=== PATIENT | female | born 1960 | race Caucasian/White ===

== ENCOUNTER 2017-11-30 16:55 | Inpatient (IN) | payer BC ==
[~2017-11-30] VITALS: Ht 157.5 cm; Wt 76.9 kg
[2017-11-30 18:58] LABS: PLATELET COUNT 237 x10^3mcL (130-400)
[2017-11-30 19:15] LABS: BILIRUBIN TOTAL 0.44 mg/dL (0.20-1.00); CALCIUM 8.8 mg/dL (8.5-10.1); CREATININE SERUM 3.3 mg/dL (0.6-1.0); TOTAL PROTEIN, SERUM 7.5 g/dL (6.4-8.2)
[2017-11-30 19:16] LABS: ALBUMIN 2.6 g/dL (3.4-5.0)
[2017-11-30 19:17] LABS: POTASSIUM SERUM 2.3 mmol/L (3.5-5.1)
[2017-11-30 20:00] LABS: BAND NEUTROPHIL 33 % (0-10); BASOPHIL 0 % (0-2); METAMYELOCTE 2 % (0-2); MONOCYTE 2 % (0-7); MYELOCYTE 3 % (0-2); PLATELET MORPHOLOGY PLT CLUMPS SEEN; SEGMENTED NEUTROPHILS 54 % (37-75); rbc morphology (normal/abnorm) ABNORMAL (NORMAL)
[2017-11-30 21:00] LABS: MAGNESIUM 1.6 mg/dL (1.8-2.4); PHOSPHOROUS 2.4 mg/dL (2.5-4.9)
[2017-11-30 21:07] LABS: FREE T4 1.51 ng/dL (0.76-1.46); FREE THYROXINE INDEX 2.5 ug/dL (1.4-4.5); T4(THYROXINE) 7.1 ug/dL (4.7-13.3)
[2017-11-30 21:08] LABS: T3 TOTAL 0.48 ng/mL
[2017-11-30 21:32] LABS: microscopic required? YES; urine erythrocyte TRACE (NEGATIVE)
[2017-11-30 21:42] LABS: CHOLESTEROL/HDL RATIO 6.9
[2017-11-30 21:42] LABS: AMPHETAMINE QUAL UR NONE DETECTED (See below)
[2017-11-30 22:04] VITALS: BP 121/71
[2017-12-01] VITALS (7 sets, daily range): BP systolic 108–162; BP diastolic 53–85
[2017-12-01 01:07] LABS: AMYLASE 31 U/L (25-115); LACTIC DEHYDROGENASE (LDH) 221 U/L (100-190)
[2017-12-01 04:57] LABS: CALCIUM 7.9 mg/dL (8.5-10.1); CARBON DIOXIDE 15.6 mmol/L (21-32); CREATININE SERUM 2.3 mg/dL (0.6-1.0)
[2017-12-01 05:11] LABS: POTASSIUM SERUM 2.1 mmol/L (3.5-5.1)
[2017-12-01 05:13] LABS: PLATELET COUNT 206 x10^3mcL (130-400); RED CELL DISTRIBUTION WIDTH 15.3 % (11.5-14.5)
[2017-12-01 06:05] LABS: BAND NEUTROPHIL 44 % (0-10); METAMYELOCTE 9 % (0-2); MONOCYTE 3 % (0-7); MYELOCYTE 3 % (0-2); SEGMENTED NEUTROPHILS 34 % (37-75); rbc morphology (normal/abnorm) ABNORMAL (NORMAL)
[2017-12-01 06:06] LABS: PLATELET MORPHOLOGY PLATELETS NORMAL
[2017-12-01 12:16] LABS: CALCIUM 8.3 mg/dL (8.5-10.1); CARBON DIOXIDE 19.2 mmol/L (21-32); CREATININE SERUM 2.1 mg/dL (0.6-1.0)
[2017-12-01 12:56] LABS: POTASSIUM SERUM 2.8 mmol/L (3.5-5.1)
[2017-12-01 15:34] LABS: CALCIUM 8.1 mg/dL (8.5-10.1); CARBON DIOXIDE 18.5 mmol/L (21-32)
[2017-12-01 15:37] LABS: POTASSIUM SERUM 2.7 mmol/L (3.5-5.1)
[2017-12-01 23:02] LABS: SOURCE FLUID THORACENTESIS
[2017-12-01 23:06] LABS: APPEARANCE FLUID TURBID
[2017-12-01 23:07] LABS: COLOR FLUID YELLOW; LYMPHOCYTE FLUID 4 %; RBC FLUID 6725 /cumm; WBC FLUID 15425 /cumm
[2017-12-02 04:47] VITALS: BP 101/78
[2017-12-02 05:57] LABS: CALCIUM 8.1 mg/dL (8.5-10.1); CARBON DIOXIDE 17.1 mmol/L (21-32); CREATININE SERUM 1.1 mg/dL (0.6-1.0); MAGNESIUM 2.5 mg/dL (1.8-2.4); PHOSPHOROUS 2.8 mg/dL (2.5-4.9); POTASSIUM SERUM 3.5 mmol/L (3.5-5.1)
[2017-12-02 06:50] LABS: PLATELET COUNT 164 x10^3mcL (130-400)
[2017-12-02 06:55] LABS: RED CELL DISTRIBUTION WIDTH 15.8 % (11.5-14.5)
[2017-12-02 07:30] VITALS: BP 115/75
[2017-12-02 11:14] VITALS: BP 115/72
[2017-12-02 12:47] LABS: BAND NEUTROPHIL 38 % (0-10); MONOCYTE 4 % (0-7)
[2017-12-02 12:48] LABS: SEGMENTED NEUTROPHILS 53 % (37-75); rbc morphology (normal/abnorm) NORMAL (NORMAL)
[2017-12-02 12:49] LABS: PLATELET MORPHOLOGY PLATELETS NORMAL
[2017-12-02 16:17] VITALS: BP 141/72
[2017-12-02 21:22] VITALS: BP 139/71
[2017-12-03 06:19] VITALS: BP 142/78
[2017-12-03 06:43] LABS: CALCIUM 8.1 mg/dL (8.5-10.1); CARBON DIOXIDE 19.1 mmol/L (21-32); CHLORIDE SERUM 99 mmol/L (98-107); CREATININE SERUM 0.6 mg/dL (0.6-1.0); GFR1 > 60 mL/min; GLUCOSE SERUM 103 mg/dL (74-106); MAGNESIUM 1.5 mg/dL (1.8-2.4); PHOSPHOROUS 2.7 mg/dL (2.5-4.9); PLATELET COUNT 189 x10^3mcL (130-400); POTASSIUM SERUM 3.4 mmol/L (3.5-5.1); SODIUM SERUM 131 mmol/L (136-145)
[2017-12-03 07:07] LABS: RED CELL DISTRIBUTION WIDTH 16.2 % (11.5-14.5)
[2017-12-03 09:16] VITALS: BP 143/80
[2017-12-03 12:13] LABS: BAND NEUTROPHIL 30 % (0-10); SEGMENTED NEUTROPHILS 56 % (37-75)
[2017-12-03 12:14] LABS: ATYPICAL LYMPH 2 %; MONOCYTE 4 % (0-7); PLATELET MORPHOLOGY PLATELETS NORMAL; rbc morphology (normal/abnorm) ABNORMAL (NORMAL)
[2017-12-03 13:24] VITALS: BP 138/78
[2017-12-03 15:24] VITALS: BP 138/78
[2017-12-03 18:00] VITALS: BP 157/86
[2017-12-03 21:02] VITALS: BP 147/57
[2017-12-04 05:45] VITALS: BP 148/93
[2017-12-04 07:01] LABS: PLATELET COUNT 209 x10^3mcL (130-400)
[2017-12-04 07:36] LABS: CARBON DIOXIDE 23.2 mmol/L (21-32); CHLORIDE SERUM 103 mmol/L (98-107); CREATININE SERUM 0.5 mg/dL (0.6-1.0); GFR1 > 60 mL/min; GLUCOSE SERUM 111 mg/dL (74-106); MAGNESIUM 1.9 mg/dL (1.8-2.4); PHOSPHOROUS 3.5 mg/dL (2.5-4.9); POTASSIUM SERUM 3.6 mmol/L (3.5-5.1); SODIUM SERUM 139 mmol/L (136-145)
[2017-12-04 09:15] VITALS: BP 133/72
[2017-12-04 09:55] LABS: BAND NEUTROPHIL 21 % (0-10); BASOPHIL 0 % (0-2); METAMYELOCTE 5 % (0-2); MONOCYTE 5 % (0-7); SEGMENTED NEUTROPHILS 61 % (37-75)
[2017-12-04 09:56] LABS: PLATELET MORPHOLOGY LARGE PLATELET SEEN; rbc morphology (normal/abnorm) ABNORMAL (NORMAL); tear drop cell (dacryocyte) 1+
[2017-12-04 12:41] VITALS: BP 135/72
[2017-12-04 17:28] VITALS: BP 143/78
[2017-12-04 20:50] VITALS: BP 125/68
[2017-12-05 05:18] VITALS: BP 139/81
[2017-12-05 09:14] LABS: PLATELET COUNT 249 x10^3mcL (130-400)
[2017-12-05 09:16] LABS: RED CELL DISTRIBUTION WIDTH 15.6 % (11.5-14.5)
[2017-12-05 09:24] LABS: CARBON DIOXIDE 24.4 mmol/L (21-32); CHLORIDE SERUM 99 mmol/L (98-107); CREATININE SERUM 0.5 mg/dL (0.6-1.0); GFR1 > 60 mL/min; GLUCOSE SERUM 191 mg/dL (74-106); MAGNESIUM 1.3 mg/dL (1.8-2.4); PHOSPHOROUS 3.2 mg/dL (2.5-4.9); POTASSIUM SERUM 3.6 mmol/L (3.5-5.1); SODIUM SERUM 133 mmol/L (136-145)
[2017-12-05 09:34] VITALS: BP 123/74
[2017-12-05 10:58] LABS: BAND NEUTROPHIL 3 % (0-10); MONOCYTE 6 % (0-7); SEGMENTED NEUTROPHILS 83 % (37-75); rbc morphology (normal/abnorm) NORMAL (NORMAL)
[2017-12-05 13:16] VITALS: BP 150/75
[2017-12-05 17:23] VITALS: BP 143/76
[2017-12-05 20:23] VITALS: BP 114/63
[2017-12-06 05:11] VITALS: BP 123/62
[2017-12-06 07:49] LABS: CALCIUM 7.9 mg/dL (8.5-10.1); CARBON DIOXIDE 26.7 mmol/L (21-32); CHLORIDE SERUM 103 mmol/L (98-107); CREATININE SERUM 0.5 mg/dL (0.6-1.0); GFR1 > 60 mL/min; GLUCOSE SERUM 108 mg/dL (74-106); MAGNESIUM 1.6 mg/dL (1.8-2.4); PHOSPHOROUS 3.6 mg/dL (2.5-4.9); POTASSIUM SERUM 3.9 mmol/L (3.5-5.1); SODIUM SERUM 138 mmol/L (136-145)
[2017-12-06 08:25] LABS: PLATELET COUNT 297 x10^3mcL (130-400)
[2017-12-06 08:28] LABS: RED CELL DISTRIBUTION WIDTH 15.6 % (11.5-14.5)
[2017-12-06 09:00] VITALS: BP 121/69
[2017-12-06 09:46] LABS: BAND NEUTROPHIL 15 % (0-10); BASOPHIL 0 % (0-2); METAMYELOCTE 1 % (0-2); MONOCYTE 8 % (0-7); MYELOCYTE 1 % (0-2); SEGMENTED NEUTROPHILS 64 % (37-75)
[2017-12-06 09:47] LABS: PLATELET MORPHOLOGY PLATELETS NORMAL; rbc morphology (normal/abnorm) NORMAL (NORMAL)
[2017-12-06 16:16] VITALS: BP 127/62
[2017-12-06 21:23] VITALS: BP 135/70
[2017-12-07 05:18] VITALS: BP 120/78
[2017-12-07 07:00] LABS: CALCIUM 7.8 mg/dL (8.5-10.1); CHLORIDE SERUM 102 mmol/L (98-107); CREATININE SERUM 0.5 mg/dL (0.6-1.0); GFR1 > 60 mL/min; GLUCOSE SERUM 97 mg/dL (74-106); MAGNESIUM 1.4 mg/dL (1.8-2.4); PHOSPHOROUS 3.6 mg/dL (2.5-4.9); POTASSIUM SERUM 4.1 mmol/L (3.5-5.1); SODIUM SERUM 134 mmol/L (136-145)
[2017-12-07 07:02] LABS: BASOPHIL % 0.4 % (0-2); PLATELET COUNT 355 x10^3mcL (130-400)
[2017-12-07 07:03] LABS: RED CELL DISTRIBUTION WIDTH 15.5 % (11.5-14.5)
[2017-12-07 09:47] VITALS: BP 115/65
[2017-12-07 12:58] VITALS: BP 147/78
[2017-12-07 17:01] VITALS: BP 158/65
[2017-12-07 21:24] VITALS: BP 125/67
[2017-12-08 05:39] VITALS: BP 130/74
[2017-12-08 08:51] VITALS: BP 104/56
[2017-12-08 12:07] VITALS: BP 112/61
[2017-12-08 15:52] VITALS: BP 112/61
[2017-12-08 17:09] VITALS: BP 135/74
[2017-12-08 20:09] VITALS: BP 117/57
[2017-12-09 05:21] VITALS: BP 143/83
[2017-12-09 06:42] LABS: CALCIUM 8.1 mg/dL (8.5-10.1); CHLORIDE SERUM 103 mmol/L (98-107); CREATININE SERUM 0.5 mg/dL (0.6-1.0); GFR1 > 60 mL/min; GLUCOSE SERUM 106 mg/dL (74-106); MAGNESIUM 1.4 mg/dL (1.8-2.4); PHOSPHOROUS 3.8 mg/dL (2.5-4.9); POTASSIUM SERUM 3.5 mmol/L (3.5-5.1); SODIUM SERUM 139 mmol/L (136-145)
[2017-12-09 06:53] LABS: BASOPHIL % 0.6 % (0-2)
[2017-12-09 06:59] LABS: PLATELET COUNT 487 x10^3mcL (130-400); RED CELL DISTRIBUTION WIDTH 15.6 % (11.5-14.5)
[2017-12-09 09:17] VITALS: BP 115/62
[2017-12-09 13:42] VITALS: BP 120/69
[2017-12-09 17:28] VITALS: BP 125/64
[2017-12-09 20:12] VITALS: BP 119/63
[2017-12-10 05:39] VITALS: BP 129/75
[2017-12-10 05:45] LABS: CALCIUM 8.4 mg/dL (8.5-10.1); CARBON DIOXIDE 22.9 mmol/L (21-32); CHLORIDE SERUM 104 mmol/L (98-107); CREATININE SERUM 0.5 mg/dL (0.6-1.0); GFR1 > 60 mL/min; GLUCOSE SERUM 110 mg/dL (74-106); POTASSIUM SERUM 3.7 mmol/L (3.5-5.1); SODIUM SERUM 138 mmol/L (136-145)
[2017-12-10 06:36] LABS: RED CELL DISTRIBUTION WIDTH 15.5 % (11.5-14.5)
[2017-12-10 06:37] LABS: PLATELET COUNT 541 x10^3mcL (130-400)
[2017-12-10 09:49] VITALS: BP 111/51
[2017-12-10 13:36] VITALS: BP 105/46
[2017-12-10 17:34] VITALS: BP 126/74
[2017-12-10 20:26] VITALS: BP 126/70
[2017-12-11 05:29] VITALS: BP 121/73
[2017-12-11 06:32] LABS: CALCIUM 8.3 mg/dL (8.5-10.1); CARBON DIOXIDE 26.4 mmol/L (21-32); CHLORIDE SERUM 106 mmol/L (98-107); CREATININE SERUM 0.6 mg/dL (0.6-1.0); GFR1 > 60 mL/min; GLUCOSE SERUM 93 mg/dL (74-106); MAGNESIUM 1.6 mg/dL (1.8-2.4); POTASSIUM SERUM 3.9 mmol/L (3.5-5.1); SODIUM SERUM 140 mmol/L (136-145)
[2017-12-11 06:40] LABS: BASOPHIL % 1.2 % (0-2)
[2017-12-11 06:54] LABS: RED CELL DISTRIBUTION WIDTH 14.8 % (11.5-14.5)
[2017-12-11 06:55] LABS: PLATELET COUNT 676 x10^3mcL (130-400)
[2017-12-11 08:04] VITALS: BP 121/73
[2017-12-11 08:50] VITALS: BP 116/52
[2017-12-11 12:56] VITALS: BP 113/55
[2017-12-11 17:54] VITALS: BP 116/62
[2017-12-11 19:53] VITALS: BP 122/60
[2017-12-12 05:23] VITALS: BP 132/86
[2017-12-12 06:15] LABS: CALCIUM 8.5 mg/dL (8.5-10.1); CARBON DIOXIDE 24.9 mmol/L (21-32); CHLORIDE SERUM 105 mmol/L (98-107); CREATININE SERUM 0.6 mg/dL (0.6-1.0); GFR1 > 60 mL/min; GLUCOSE SERUM 101 mg/dL (74-106); POTASSIUM SERUM 3.3 mmol/L (3.5-5.1); SODIUM SERUM 137 mmol/L (136-145)
[2017-12-12 07:15] LABS: BASOPHIL % 1.2 % (0-2)
[2017-12-12 07:29] LABS: PLATELET COUNT 652 x10^3mcL (130-400)
[2017-12-12 08:36] VITALS: BP 105/50
[2017-12-12] MEDS ORDERED: APAP/HYDROCODON1 T13 PO (11:38)
[2017-12-12] MEDS ORDERED: IPRATROPIUM BROM3 M2 HHN (11:38)
[2017-12-12] MEDS ORDERED: COL100 PO (11:38)
[2017-12-12] MEDS ORDERED: IPRATROPIUM BROM3 M2 INH (11:38)
[2017-12-12] MEDS ORDERED: THERA-M CAPLET1 EACH PO (11:39)
[2017-12-12] MEDS ORDERED: THI100 PO (11:39)
[2017-12-12] MEDS ORDERED: FOL1 PO (11:39)
[2017-12-12] MEDS ORDERED: PEP20 PO (11:39)
[2017-12-12] MEDS ORDERED: ZOS3PM IV (11:40)
[2017-12-12 13:37] VITALS: BP 99/50
[2017-12-12 16:09] VITALS: BP 128/57
[2017-12-12 20:12] VITALS: BP 115/67
[2017-12-13 05:38] VITALS: BP 124/67
[2017-12-13 07:07] LABS: CALCIUM 8.7 mg/dL (8.5-10.1); CARBON DIOXIDE 23.6 mmol/L (21-32); CHLORIDE SERUM 105 mmol/L (98-107); CREATININE SERUM 0.6 mg/dL (0.6-1.0); GFR1 > 60 mL/min; GLUCOSE SERUM 109 mg/dL (74-106); POTASSIUM SERUM 3.6 mmol/L (3.5-5.1); SODIUM SERUM 139 mmol/L (136-145)
[2017-12-13 08:00] VITALS: BP 101/49
[2017-12-13 08:55] LABS: RED CELL DISTRIBUTION WIDTH 16.3 % (11.5-14.5)
[2017-12-13 09:40] VITALS: BP 102/47
[2017-12-13 10:13] LABS: ATYPICAL LYMPH 10 %; BAND NEUTROPHIL 5 % (0-10); BASOPHIL 0 % (0-2); MONOCYTE 5 % (0-7); SEGMENTED NEUTROPHILS 61 % (37-75)
[2017-12-13 10:14] LABS: PLATELET MORPHOLOGY PLATELETS INCREASED; rbc morphology (normal/abnorm) ABNORMAL (NORMAL)
[2017-12-13 11:02] LABS: PLATELET COUNT 630 x10^3mcL (130-400)
[2017-12-13 12:10] VITALS: BP 127/80
[2017-12-13 17:23] VITALS: BP 132/67
[2017-12-13 20:57] VITALS: BP 135/76
[2017-12-14 05:26] VITALS: BP 140/80
[2017-12-14 08:53] VITALS: BP 133/56
[2017-12-14 14:02] VITALS: BP 147/82
[2017-12-14 17:41] VITALS: BP 160/76
[2017-12-14 20:07] VITALS: BP 133/72
[2017-12-15 04:57] VITALS: BP 120/61
[2017-12-15 09:35] VITALS: BP 103/55
[2017-12-15 09:49] LABS: CALCIUM 8.8 mg/dL (8.5-10.1); CARBON DIOXIDE 26.7 mmol/L (21-32); CHLORIDE SERUM 103 mmol/L (98-107); CREATININE SERUM 0.6 mg/dL (0.6-1.0); GFR1 > 60 mL/min; GLUCOSE SERUM 148 mg/dL (74-106); POTASSIUM SERUM 3.8 mmol/L (3.5-5.1); SODIUM SERUM 134 mmol/L (136-145)
[2017-12-15 09:54] LABS: BASOPHIL % 0.4 % (0-2)
[2017-12-15 10:01] LABS: PLATELET COUNT 638 x10^3mcL (130-400); RED CELL DISTRIBUTION WIDTH 16.1 % (11.5-14.5)
[2017-12-15 12:58] VITALS: BP 137/73
[2017-12-15 16:28] VITALS: BP 133/67
[2017-12-15 16:30] VITALS: BP 135/65
[2017-12-15 22:08] VITALS: BP 124/68
[2017-12-16 05:37] VITALS: BP 130/61
[2017-12-16 06:57] LABS: BASOPHIL % 0.6 % (0-2)
[2017-12-16 07:08] LABS: CALCIUM 8.4 mg/dL (8.5-10.1); CARBON DIOXIDE 27.6 mmol/L (21-32); CHLORIDE SERUM 106 mmol/L (98-107); CREATININE SERUM 0.6 mg/dL (0.6-1.0); GFR1 > 60 mL/min; GLUCOSE SERUM 105 mg/dL (74-106); POTASSIUM SERUM 3.7 mmol/L (3.5-5.1); SODIUM SERUM 140 mmol/L (136-145)
[2017-12-16 07:34] LABS: PLATELET COUNT 537 x10^3mcL (130-400); RED CELL DISTRIBUTION WIDTH 15.9 % (11.5-14.5)
[2017-12-16 10:28] VITALS: BP 138/68
[2017-12-16 12:55] VITALS: BP 104/49
[2017-12-16 16:43] VITALS: BP 100/55
[2017-12-16 19:45] VITALS: BP 109/50
[2017-12-17 06:50] VITALS: BP 134/54
[2017-12-17 06:53] LABS: CALCIUM 8.3 mg/dL (8.5-10.1); CARBON DIOXIDE 24.5 mmol/L (21-32); CHLORIDE SERUM 105 mmol/L (98-107); CREATININE SERUM 0.6 mg/dL (0.6-1.0); GFR1 > 60 mL/min; GLUCOSE SERUM 109 mg/dL (74-106); POTASSIUM SERUM 3.5 mmol/L (3.5-5.1); SODIUM SERUM 141 mmol/L (136-145)
[2017-12-17 08:29] VITALS: BP 103/51
[2017-12-17 08:33] LABS: BASOPHIL % 0.7 % (0-2)
[2017-12-17 08:46] LABS: PLATELET COUNT 536 x10^3mcL (130-400); RED CELL DISTRIBUTION WIDTH 15.8 % (11.5-14.5)
[2017-12-17 11:45] VITALS: BP 123/58
[2017-12-17 18:25] VITALS: BP 124/65
[2017-12-17 20:53] VITALS: BP 142/68
[2017-12-18 05:43] VITALS: BP 133/76
[2017-12-18 09:06] LABS: BASOPHIL % 0.4 % (0-2)
[2017-12-18 09:09] LABS: PLATELET COUNT 548 x10^3mcL (130-400)
[2017-12-18 09:21] LABS: CALCIUM 8.9 mg/dL (8.5-10.1); CARBON DIOXIDE 27.3 mmol/L (21-32); CHLORIDE SERUM 104 mmol/L (98-107); CREATININE SERUM 0.6 mg/dL (0.6-1.0); GFR1 > 60 mL/min; GLUCOSE SERUM 142 mg/dL (74-106); POTASSIUM SERUM 3.7 mmol/L (3.5-5.1); SODIUM SERUM 136 mmol/L (136-145)
[2017-12-18 09:34] VITALS: BP 130/43
[2017-12-18 16:59] VITALS: BP 133/61
[2017-12-19 02:20] VITALS: BP 123/77
[2017-12-19 06:02] VITALS: BP 124/64
[2017-12-19 06:39] LABS: BASOPHIL % 0.7 % (0-2)
[2017-12-19 06:47] LABS: CALCIUM 9.1 mg/dL (8.5-10.1); CARBON DIOXIDE 24.1 mmol/L (21-32); CHLORIDE SERUM 102 mmol/L (98-107); CREATININE SERUM 0.6 mg/dL (0.6-1.0); GFR1 > 60 mL/min; GLUCOSE SERUM 102 mg/dL (74-106); POTASSIUM SERUM 3.8 mmol/L (3.5-5.1); SODIUM SERUM 136 mmol/L (136-145)
[2017-12-19 07:02] LABS: PLATELET COUNT 544 x10^3mcL (130-400); RED CELL DISTRIBUTION WIDTH 16.6 % (11.5-14.5)
[2017-12-19 08:44] VITALS: BP 123/67
[2017-12-19 13:52] VITALS: BP 128/59
[2017-12-19 17:14] VITALS: BP 112/56
[2017-12-19 20:47] VITALS: BP 111/63
[2017-12-20 05:33] VITALS: BP 118/70
[2017-12-20 06:08] LABS: BASOPHIL % 0.7 % (0-2)
[2017-12-20 06:15] LABS: CALCIUM 8.7 mg/dL (8.5-10.1); CARBON DIOXIDE 24.2 mmol/L (21-32); CHLORIDE SERUM 107 mmol/L (98-107); CREATININE SERUM 0.6 mg/dL (0.6-1.0); GFR1 > 60 mL/min; GLUCOSE SERUM 109 mg/dL (74-106); POTASSIUM SERUM 3.9 mmol/L (3.5-5.1); SODIUM SERUM 141 mmol/L (136-145)
[2017-12-20 07:07] LABS: PLATELET COUNT 550 x10^3mcL (130-400); RED CELL DISTRIBUTION WIDTH 15.9 % (11.5-14.5)
[2017-12-20 08:59] VITALS: BP 114/60
[2017-12-20 12:30] VITALS: BP 112/61
[2017-12-20 17:24] VITALS: BP 110/57
[2017-12-20 17:56] VITALS: BP 110/57
[2017-12-20 20:38] VITALS: BP 129/66
[2017-12-21 05:37] VITALS: BP 139/76
[2017-12-21 06:11] LABS: BASOPHIL % 0.9 % (0-2)
[2017-12-21 06:18] LABS: CALCIUM 8.8 mg/dL (8.5-10.1); CARBON DIOXIDE 23.7 mmol/L (21-32); CHLORIDE SERUM 106 mmol/L (98-107); CREATININE SERUM 0.6 mg/dL (0.6-1.0); GFR1 > 60 mL/min; GLUCOSE SERUM 102 mg/dL (74-106); POTASSIUM SERUM 3.9 mmol/L (3.5-5.1); SODIUM SERUM 141 mmol/L (136-145)
[2017-12-21 07:14] LABS: PLATELET COUNT 563 x10^3mcL (130-400)
[2017-12-21 10:42] VITALS: BP 133/66
[2017-12-21 12:23] VITALS: BP 126/63
[2017-12-21 16:20] VITALS: BP 130/63
[2017-12-21 20:17] VITALS: BP 122/63
[2017-12-21 20:46] VITALS: BP 122/63
== END 2017-12-21 20:45 | disposition short-term general hospital (02) | DRG 871 ==
LOC: ED 16:55 → IC 19:12 → DU 19:12 → IC 20:39 → DU 12-02 16:29
PROVIDERS: Emergency Medicine; Family Medicine; Internal Medicine
PROC: 0W9B30Z Drainage of Left Pleural Cavity with Drainage Device, Percutaneous Approach (ICD-10-PCS; principal; 2017-11-30)
PROC: 0WP8X0Z Removal of Drainage Device from Chest Wall, External Approach (ICD-10-PCS; 2017-12-03)
PROC: 0W9B30Z Drainage of Left Pleural Cavity with Drainage Device, Percutaneous Approach (ICD-10-PCS; 2017-12-03)
PROC: 0WP8X0Z Removal of Drainage Device from Chest Wall, External Approach (ICD-10-PCS; 2017-12-13)
PROC: 0W9B30Z Drainage of Left Pleural Cavity with Drainage Device, Percutaneous Approach (ICD-10-PCS; 2017-12-13)
PROC: 3E0L3GC Introduction of Other Therapeutic Substance into Pleural Cavity, Percutaneous Approach (ICD-10-PCS; 2017-12-13)
PROC: 3E1L38Z Irrigation of Pleural Cavity using Irrigating Substance, Percutaneous Approach (ICD-10-PCS; 2017-12-18)
DX: A41.9 Sepsis, unspecified organism (principal); N17.0 Acute kidney failure with tubular necrosis; J18.9 Pneumonia, unspecified organism; E43 Unspecified severe protein-calorie malnutrition; J96.01 Acute respiratory failure with hypoxia; J86.0 Pyothorax with fistula; E87.1 Hypo-osmolality and hyponatremia; J98.11 Atelectasis; J90 Pleural effusion, not elsewhere classified; J44.0 Chronic obstructive pulmonary disease with (acute) lower respiratory infection; I48.0 Paroxysmal atrial fibrillation; E87.6 Hypokalemia; E83.39 Other disorders of phosphorus metabolism; E83.51 Hypocalcemia; D47.3 Essential (hemorrhagic) thrombocythemia; D63.8 Anemia in other chronic diseases classified elsewhere; K22.8 Other specified diseases of esophagus; F17.200 Nicotine dependence, unspecified, uncomplicated; R74.0 Nonspecific elevation of levels of transaminase and lactic acid dehydrogenase [LDH]; K76.0 Fatty (change of) liver, not elsewhere classified; E83.42 Hypomagnesemia; R65.20 Severe sepsis without septic shock; Z82.61 Family history of arthritis; Z82.0 Family history of epilepsy and other diseases of the nervous system; Z80.42 Family history of malignant neoplasm of prostate; Z83.79 Family history of other diseases of the digestive system
CPT/HCPCS: 32555; 36600; 78598; 83880; 84439; 85378; 85613; 94150; 97110-GP; 97116-GP; 97530-GP; A7042; A9540; C1729; J0610; J0690; J1160; J1170; J1580; J1644; J1885; J1956; J2001; J2250; J2270; J2405; J2543; J2704; J2930; J2997; J3010; J3370; J3475; J3480; J3490; J7030; J7040; J7120; J7613; J7620; J7644; Q0092; Q9967